=== PATIENT | female | born 2005 | race Two or more races ===

== ENCOUNTER 2025-05-04 21:59 | Emergency (ER) | payer BC, MEDICAID ==
[~2025-05-04] VITALS: Ht 160 cm; Wt 58.5 kg
[2025-05-04 23:26] VITALS: BP 105/69; TEMP 98.6; O2SAT 96
[2025-05-04] MEDS ORDERED: IBUP-1490 PO (23:54)
[2025-05-05] MEDS ORDERED: KETOROLAC TROMETHAMINE INJ 30 MG/ML VIAL ONE (00:03)
[2025-05-05] MEDS: KETOROLAC TROMETHAMINE INJ 30 MG/ML VIAL IM ONE (00:06)
== END 2025-05-05 00:08 | disposition home or self-care (01) ==
LOC: ER 22:58
DX: M94.0 Chondrocostal junction syndrome [Tietze] (principal); Z98.82 Breast implant status
CPT/HCPCS: 99283; 96372; J1885